=== PATIENT | male | born 1960 | race Hispanic/Latino ===

== ENCOUNTER 2016-02-19 17:33 | Inpatient (IN) | payer OTHER ==
[2016-02-19 18:25] LABS: Basophils % (Auto) 0.1 % (0.0-1.8); Eosinophils % (Auto) 0.4 % (0.0-4.3); Hematocrit 44.4 % (35.5-45.6); Mean Corpuscular HGB Conc 34 % (32-34); Mean Corpuscular Hemoglobin 30 pg (28-32); Mean Corpuscular Volume 89 fl (84-94); Platelet Count 185 K/mm3 (140-440); Red Blood Count 4.97 M/mm3 (3.65-5.03); Red Cell Distribution Width 13.5 % (13.2-15.2); White Blood Count 13.8 K/mm3 (4.5-11.0)
[2016-02-19 19:12] LABS: Urine Drugs of Abuse Note Disclamer
[2016-02-19 19:20] LABS: BUN/Creatinine Ratio 13.63; Blood Urea Nitrogen 15 mg/dL (9-20); Calcium 9.3 mg/dL (8.4-10.2); Carbon Dioxide 25 mmol/L (22-30); Chloride 97.4 mmol/L (98-107); Glucose 101 mg/dL (75-100); Potassium 4.5 mmol/L (3.6-5.0); Sodium 135 mmol/L (137-145)
[2016-02-19 19:26] LABS: Anion Gap 17 mmol/L
[2016-02-19 19:31] LABS: Bilirubin,Urine NEG (Negative); Blood,Urine NEG (Negative); Ketones,Urine NEG (Negative); Leukocyte Esterase,Urine NEG (Negative); Mucus,Urine FEW /HPF; Nitrite,Urine NEG (Negative); Protein,Urine <15 mg/dL mg/dL (Negative); Urobilinogen,Urine < 2.0 mg/dL (<2.0)
[2016-02-19] MEDS ORDERED: KEPPRA 1,000 MG/NS 0.75% 100ML 100 ML IV ONE (20:37)
[2016-02-19] MEDS ORDERED: SUBLIMAZE IV ONE (20:37)
[2016-02-19] MEDS ORDERED: ATIVAN IV ONE (20:37)
[2016-02-19] MEDS ORDERED: NACL 0.9% 1000 ML 1,000 ML IV ONE (20:37)
[2016-02-19] MEDS ORDERED: ZOFRAN IV ONE (20:38)
--- NOTE | 2016-02-19 20:52 | Emergency Department Report ---
HPI - General Chief Complaint: Chest Pain Time Seen by Provider: 02/19/16 20:23 - HPI HPI: Room 9 The patient is a 55-year-old male sent from the hospital with a chief complaint of seizure and chest pain. The patient is currently at [facility] for suicidal ideation. The patient reports she did not do anything to try to harm himself but only had the thoughts. Today at approximately 15:00 the patient was informed that he had a seizure. When the patient came to approximately 10- 15 minutes later he developed chest pain. Patient described the pain as sharp in nature substernal in location. Patient states the pain was constant for approximately 2.5 hours and then resolved. Patient denies shortness of breath, nausea/vomiting or diaphoresis. Patient states she's never had a seizure before. The patient has a history of multiple surgeries on his left hip states he has had pain in the left hip since coming to from the seizure. The patient gives his pain a score of 8/10 Location: Central nervous system, chest, left hip Duration: [see above] Quality: Sharp Severity:8/10 Modifying factors: [see above] Context: [see above] Mode of transportation: [not driving] ED Past Medical Hx - Past Medical History Hx Psychiatric Treatment: Yes (Suicide ideation) Additional medical history: Bone degeneration - Surgical History Past Surgical History?: Yes Additional Surgical History: 3 hip replacement surgeries - Family History Family history: no significant - Social History Smoking Status: Never Smoker Substance Use Type: None (denies illicit drug use or alcohol consumption) ED Review of Systems ROS: Stated complaint: CHEST PAIN,SEIZURE,LEFT HIP FRACTURE Other details as noted in HPI Comment: All other systems reviewed and negative Constitutional: denies: chills, fever Eyes: denies: eye pain, eye discharge, vision change ENT: denies: ear pain, throat pain Respiratory: denies: cough, shortness of breath, wheezing Cardiovascular: denies: chest pain, palpitations Endocrine: no symptoms reported Gastrointestinal: denies: abdominal pain, nausea, diarrhea Genitourinary: denies: urgency, dysuria Musculoskeletal: arthralgia Skin: denies: rash, lesions Neurological: other (seizure) Psychiatric: suicidal thoughts. denies: anxiety, depression Hematological/Lymphatic: denies: easy bleeding, easy bruising Physical Exam - Physical Exam Vital Signs: Vital Signs 02/19/16 02/19/1617 17:44 17:54 18:00 Temperature 98 F Pulse Rate 120 H 119 H Respiratory 16 31 H 12 Rate Blood Pressure 110/79 110/79 O2 Sat by Pulse 96 97 Oximetry 02/19/16 19:00 Temperature Pulse Rate 118 H Respiratory 17 Rate Blood Pressure 117/77 O2 Sat by Pulse 95 Oximetry Physical Exam: GENERAL: The patient is well-developed well-nourished male lying on stretcher appearing to be in moderate discomfort. [] HEENT: Normocephalic. Atraumatic. Extraocular motions are intact. Patient has moist mucous membranes. NECK: Supple. Trachea midline CHEST/LUNGS: Clear to auscultation. There is no respiratory distress noted. HEART/CARDIOVASCULAR: Regular. There is tachycardia. There is no gallop rub or murmur. ABDOMEN: Abdomen is soft, nontender. Patient has normal bowel sounds. There is no abdominal distention. SKIN: There is no rash. There is no edema. There is no diaphoresis. NEURO: The patient is awake, alert, and oriented. The patient is cooperative. The patient has no focal neurologic deficits. The patient has normal speech. Cranial nerves II through XII grossly intact, no drift MUSCULOSKELETAL: Left hip is propped up on the pillow. Patient complains of pain. Patient has limited range of motion of the left hip from previous surgery ED Course Vital Signs 02/19/16 02/19/16 02/19/16 17:44 17:54 18:00 Temperature 98 F Pulse Rate 120 H 119 H Respiratory 16 31 H 12 Rate Blood Pressure 110/79 110/79 O2 Sat by Pulse 96 97 Oximetry 02/19/16 19:00 Temperature Pulse Rate 118 H Respiratory 17 Rate Blood Pressure 117/77 O2 Sat by Pulse 95 Oximetry ED Medical Decision Making - Lab Data Result diagrams: 02/19/16 18:18 02/19/16 18:18 Laboratory Tests 02/19/16 02/19/16 02/19/16 18:18 18:18 18:49 WBC 13.8 H RBC 4.97 Hgb 15.0 Hct 44.4 MCV 89 MCH 30 MCHC 34 RDW 13.5 Plt Count 185 Lymph % (Auto) 7.7 L [place] % (Auto) 9.2 H Eos % (Auto) 0.4 Baso % (Auto) 0.1 Lymph # 1.1 L [place] # 1.3 H Eos # 0.1 Baso # 0.0 Seg Neutrophils % 82.6 H Seg Neutrophils # 11.4 H D-Dimer Sodium 135 L Potassium 4.5 Chloride 97.4 L Carbon Dioxide 25 Anion Gap 17 BUN 15 Creatinine 1.1 Estimated GFR > 60 BUN/Creatinine Ratio 13.63 Glucose 101 H Calcium 9.3 Troponin T < 0.010 Urine Color Yellow Urine Turbidity Clear Urine pH 6.0 Ur Specific [place] 1.013 Urine Protein <15 mg/dl Urine Glucose (UA) Neg Urine Ketones Neg Urine Blood Neg Urine Nitrite Neg Urine Bilirubin Neg Urine Urobilinogen < 2.0 Ur Leukocyte Esterase Neg Urine WBC (Auto) 2.0 Urine RBC (Auto) 1.0 U Epithel Cells (Auto) < 1.0 Urine Mucus Few Urine Opiates Screen Urine Methadone Screen Ur Barbiturates Screen Ur Phencyclidine Scrn Ur Amphetamines Screen U Benzodiazepines Scrn Urine Cocaine Screen U Marijuana (THC) Screen Drugs of Abuse Note 02/19/16 02/19/16 02/19/16 18:49 21:08 21:08 WBC RBC Hgb Hct MCV MCH MCHC RDW Plt Count Lymph % (Auto) [place] % (Auto) Eos % (Auto) Baso % (Auto) Lymph # [place] # Eos # Baso # Seg Neutrophils % Seg Neutrophils # D-Dimer 192.09 Sodium Potassium Chloride Carbon Dioxide Anion Gap BUN Creatinine Estimated GFR BUN/Creatinine Ratio Glucose Calcium Troponin T < 0.010 Urine Color Urine Turbidity Urine pH Ur Specific [place] Urine Protein Urine Glucose (UA) Urine Ketones Urine Blood Urine Nitrite Urine Bilirubin Urine Urobilinogen Ur Leukocyte Esterase Urine WBC (Auto) Urine RBC (Auto) U Epithel Cells (Auto) Urine Mucus Urine Opiates Screen Presumptive negative Urine Methadone Screen Presumptive negative Ur Barbiturates Screen Presumptive negative Ur Phencyclidine Scrn Presumptive negative Ur Amphetamines Screen Presumptive negative U Benzodiazepines Scrn Presumptive negative Urine Cocaine Screen Presumptive negative U Marijuana (THC) Screen Presumptive negative Drugs of Abuse Note Disclamer - EKG Data -: EKG Interpreted by Ct EKG shows normal: sinus rhythm Rate: tachycardia (116 bpm) - EKG Data When compared to previous EKG there are: previous EKG unavailable Interpretation: other (no ischemic changes seen) - Radiology Data Radiology results: report reviewed (CT head), image reviewed (CT head, chest x- ray, left hip x-ray) interpreted by me: Left hip [id number] with relocated acetabulum in place. No acute fracture seen Chest x-ray-no focal infiltrates, no pneumothorax CT head (read by radiologist)-negative CT of the head. No acute intracranial process noted. - Differential Diagnosis seizure, ACS, PE Critical care attestation.: If time is entered above; I have spent that time in minutes in the direct care of this critically ill patient, excluding procedure time. ED Disposition Clinical Impression: Chest pain, Seizure, Left hip pain Disposition: OP ADMITTED IP TO THIS HOSP Is pt being admited?: Yes Does the pt Need Aspirin: Yes Condition: Fair Instructions: Chest Pain (ED) Time of Disposition: 22:32 (hospitalist paged)
--- NOTE | 2016-02-19 21:27 | Admit Criteria Form ---
Admission Criteria Documentation: CARDIOLOGY GRG Clinical Indications for Admission to Inpatient Care ( Place 'X' for any and all applicable criteria): Hospital admission is needed for appropriate care of the patient because of ANY ONE of the following (1): [ ] I. Hemodynamic instability as indicated by ALL of the following (1)(2)(3) (4)(5) [ ]a) Vital signs or other findings not as expected for chronic patient condition or baseline [ ]b) Instability indicated by ANY ONE of the following: [ ]i) Hypotension [ ]ii) Symptomatic Tachycardia unresponsive to treatment ( e.g., analgesia, fluids, sedation as indicated) [ ]iii) Inadequate perfusion indicated by ANY ONE of the following: [ ] 1) Lactic acidosis (> 2 mmol/L) [ ] 2) New abnormal capillary refill (> 3 seconds) [ ] 3) Reduced urine output [ ] 4) New altered mental status [ ]iv) Orthostatic vital sign changes unresponsive to treatment (e.g., fluids) [ ]v) IV inotropic or vasopressor medication required to maintain adequate blood pressure or perfusion [ ] II. Severe heart failure as indicated by ANY ONE of the following(17)(18) [ ]a) Respiratory distress [ ]b) Hypotension [ ]c) Anasarca (refractory to outpatient therapy) [ ]d) Cardiac arrhythmias of immediate concern [ ]e) Myocardial ischemia [ ] III. Cardiac arrhythmias or findings of immediate concern indicated by ANY ONE of the following (19)(20): [ ] a) Heart rhythms that are inherently dangerous or unstable indicated by ANY ONE of the following (21)(22)(23): [ ] i) Resuscitated ventricular fibrillation or cardiac arrest [ ] ii) Ventricular escape rhythm [ ] iii) Sustained ventricular tachycardia (30 seconds or more of ventricular rhythm at greater than 100 beats per minute) [ ] iv) Nonsustained ventricular tachycardia and ANY ONE of the following: [ ] 1) Suspected cardiac ischemia as cause or consequence of ventricular tachycardia [ ] 2) In setting of acute myocarditis [ ] b) Unstable cardiac conduction defects indicated by ANY ONE of the following(23)(24)(25) [ ] i) Type II second-degree atrioventricular block [ ]ii) Third-degree atrioventricular block [ ]iii) New-onset left bundle branch block with suspected myocardial ischemia [ ]c) Any heart rhythm and ANY ONE of the following (21)(22)(26)(27) (28) [ ] i) Continuous long-term ECG monitoring needed (e.g., initiation of drug requiring monitoring for more than 24 hours) [ ] ii) Patient has automatic implanted cardioverter defibrillator that is repeatedly firing, malfunctioning, or in need of immediate adjustment of settings beyond the scope of ambulatory or observation care [ ]d) Heart rhythms of concern due to ANY ONE of the following: [ ] i) Hypotension [ ] ii) Respiratory distress [ ] iii) Association with other significant symptoms (e.g., bradycardia with syncope or ongoing dizziness, supraventricular tachycardia with chest pain (14)(15)(17) [ ] IV. Monitoring for cardiac contusion beyond the scope of observation care needed [A](30)(31)(32) [ ] V. Surgical or device complication (e.g., valve replacement complication , pacemaker dysfunction) (35)(41)(44)(45)(46) [ ] . Inpatient palliative care needed. [B](49) Also use Inpatient Palliative Care Criteria [ ] VII. Nonbacterial thrombotic (marantic) endocarditis (36)(43)(47)(48) [ X] VIII. Cardiology condition, symptom, or finding for which emergency and observation care has failed or are not considered appropriate. [ ] IX. Acute valvular disease requiring inpatient as indicated by ANY ONE of the following (41) [ ]a) Acute valvular regurgitation (42) [ ]b) Noninfectious valvulitis (43) [ ]c) Obstructive valve thrombosis [ ]d) Paravalvular leak [ ]e) Other significant valvular disorder remaining after emergency or observation level of care (as appropriate) [ ]X. Pericardial disease requiring inpatient treatment as indicated by ANY ONE of the following (33)(34)(35)(36)(37) [ ]a) Suspected tamponade (38)(39)(40) [ ]b) Hemopericardium [ ]c) Other significant pericardial disorder remaining after emergency or observation level of care (as appropriate) [ ] XI. Cardiac ischemia beyond scope of emergency and observation care. [ ] XII. Hypertension requiring inpatient treatment as indicated by ANY ONE of the following (6)(7)(8) [ ]a) SBP greater than 220 mm Hg or DBP greater than 120 mmHg despite treatment [ ]b) SBP greater than 140 mm Hg or DBP greater than 100 mm Hg with evidence of acute end organ damage as indicated by ANY ONE of the following [ ] i) Altered mental status [ ] ii) Acute renal failure as indicated by new onset of ANY ONE of the following (9)(10)(11)(12)(13) [ ]1) 3-fold rise in serum creatinine from baseline [ ]2) Serum creatinine greater than 4 mg/dL ( 354 micromoles/L) with acute rise greater than 0.5 mg/dL (44.2 micromoles/L) [ ]3) Reduction of more than 75% in estimated glomerular filtration rate from baseline [ ]4) Estimated glomerular filtration rate less than 35 mL/min/1.73m2 (0.59 mL/sec/1.73m2) in child up to 18 years of age [ ]5) Cessation of urine output indicated by ALL of the following [ ]A. Adequate volume status [ ]B. Inadequate urine output as indicated by ANY ONE of the following [ ]a. Urine output less than 0.3 mL/kg/hr for 24 hours [ ]b. Anuria (urine output less than 0.1 mL/kg/hr) for 12 hours [ ] iii) Aortic dissection [ ] iv) Myocardial Ischemia [ ] v) Left ventricular heart failure [ ]vi) Retinal Hemorrhage [ ]vii) Other significant finding [ ]c) Hypertension in child requiring inpatient treatment as indicated by ALL of the following(14)(15)(16) [ ] i) Outpatient treatment not effective, not available, or not appropriate [ ]ii) SBP or DBP greater than 95th percentile for age [ ]iii) Evidence of acute end organ damage as indicated by ANY ONE of the following [ ]1) Altered mental status [ ]2) Acute renal failure as indicated by new onset of ANY ONE of the following(9)(10)(11)(12)(13) [ ]A. 3-fold rise in serum creatinine from baseline [ ]B. Serum creatinine greater than 4 mg/dL (354 micromoles/L) with acute rise greater than 0.5 mg/dL (44.2 micromoles/L) [ ]C. Reduction of more than 75% in estimated glomerular filtration rate from baseline [ ]D. Estimated glomerular filtration rate less than 35 mL/min/1.73m2 (0.59 mL/sec/1.73m2) in child up to 18 years of age [ ]E. Cessation of urine output indicated by ALL of the following [ ]a. Adequate volume status [ ]b. Inadequate urine output as indicated by ANY ONE of the following [ ]i) Urine output less than 0.3 mL/kg/hr for 24 hours [ ]ii) Anuria ( urine output less than 0.1 mL/kg/hr) for 12 hours [ ]3) Severe headache [ ]4) Visual disturbance [ ]5) Retinal hemorrhage [ ]6) Other significant finding [ ]XIII. Complications of transplanted heart indicated by ANY ONE of the following(61): [ ]a) Acute graft rejection requiring inpatient management (eg, intravenous immunosuppression)(62)(63) [ ]b) Acute graft heart failure indicated by ANY ONE of the following(64): [ ]i) Hemodynamic instability [ ]ii) Cardiac arrhythmias of immediate concern [ ]iii) Pulmonary edema that is very severe (eg, mechanical ventilation needed, imminent or likely, need for 100% oxygen to keep oxygen saturation above 90%) [ ]iv) Pulmonary edema that is persistent as indicated by ALL of the following: [ ]1) New need for oxygen therapy to keep oxygen saturation above 90% (or increased FiO2 need from baseline) [ ]2) Has not improved sufficiently with emergency department or observation care IV diuretics or other heart failure treatments[E] [ ]v) Altered mental status that is severe or persistent [ ]vi) Increased creatinine (new on laboratory test) with reduction of more than 50% in estimated glomerular filtration rate from baseline [ ]vii) Progressively (ongoing) rising creatinine (known from past laboratory test) with reduction of more than 25% in estimated glomerular filtration rate from baseline [ ]viii) Acute renal failure [ ]ix) Acute peripheral ischemia (eg, examination shows pulseless, cool, mottled, or cyanotic extremity) [ ]x) Pulmonary artery catheter monitoring needed [ ]xi) Other sign or symptom of heart failure requiring inpatient treatment (ie, too severe or not responsive to outpatient and observation care treatment) [ ]c) Infection requiring inpatient management (eg, Hemodynamic instability, need for intravenous antimicrobial treatment)(66)(67)(68)(69)(70) [ ]d) Cardiac allograft vasculopathy requiring inpatient management ( eg evidence of cardiac ischemia)(71) [ ]e) Other complication of transplanted heart (eg, stroke, severe pulmonary hypertension, severe valvular dysfunction) requiring inpatient management(72) The original [facility] ? content created by [facility] has been revised. The portions of the content which have been revised are identified through the use of italic text or in bold, and [facility] has neither reviewed nor approved the modified material. All other unmodified content is copyright [facility] [employer]. Please see references footnoted in the original [facility] [employer] edition 2016 Admission Criteria Met: Yes
--- NOTE | 2016-02-19 22:07 | Cat Scan Report ---
FINAL REPORT EXAM: CT HEAD/BRAIN WO CON HISTORY: seizure TECHNIQUE: Standard unenhanced CT of the head at 5.0 millimeter axial increments PRIORS: None. FINDINGS: The ventricular system is normal in size and configuration. There is no evidence for parenchymal volume loss. There is no evidence for mass lesion, mass effect, midline shift, acute intracranial hemorrhage, or acute ischemia/ infarction. Visualized paranasal sinuses are clear. IMPRESSION: Negative CT of the head. No acute intracranial process noted.
[2016-02-19] MEDS ORDERED: ASPIRIN PO ONE (22:33)
[2016-02-20] MEDS ORDERED: MILK OF MAGNESIA PO PRN (03:24)
[2016-02-20] MEDS ORDERED: ZOFRAN IV PRN (03:24)
[2016-02-20] MEDS ORDERED: TYLENOL PO PRN (03:24)
[2016-02-20] MEDS ORDERED: DULCOLAX PR PRN (03:24)
--- NOTE | 2016-02-20 05:39 | History and Physical Report ---
History of Present Illness Date of examination: 02/20/16 Date of admission: 02/20/16 00:42 History of present illness: This is a 55-year-old man with a history of suicide ideation who is being hospitalized at [facility] was sent over to the emergency room for evaluation of new onset seizure. Patient refused to talk, unable to obtain further history or review of system. History is per the emergency room physician. The emergency room physician he also complaining of chest pain, no further details obtain PAST SURGICAL HISTORY: Unknown SOCIAL HISTORY: Hip surgery 3 FAMILY HISTORY: Unknown Medications and Allergies Allergies Allergy/AdvReac Type Severity Reaction Status Date / Time ceftriaxone sodium Allergy Hives Verified 02/19/16 18:09 [From Rocephin] Home Medications Medication Instructions Recorded Confirmed Last Taken Type Diazepam Tab [Valium] 5 mg PO TID 02/20/16 02/20/16 02/19/16 History Gabapentin [Neurontin] 600 mg PO Q8H 02/20/16 02/20/16 02/19/16 History LORazepam [Ativan] 2 mg PO Q6HR PRN 02/20/16 02/20/16 Unknown History Mirtazapine [Remeron] 45 mg PO QHS 02/20/16 02/20/16 02/19/16 History Oxycodone HCl/Acetaminophen 1 each PO Q6HR PRN 02/20/16 02/20/16 Unknown History [Percocet 10/325 mg] Venlafaxine HCl [Venlafaxine HCl 150 mg PO DAILY 02/20/16 02/20/16 02/19/16 History ER] Active Meds: Active Medications Acetaminophen (Tylenol) 650 mg PO Q4H PRN PRN Reason: Pain MILD(1-3)/Fever >100.5/WEIR Bisacodyl (Dulcolax) 10 mg VA QDAY PRN PRN Reason: Constipation unrelieved by MOM Enoxaparin Sodium (Lovenox) 40 mg SUB-Q QDAY@1000 MATTHIAS Magnesium Hydroxide (Milk Of Magnesia) 30 ml PO Q4H PRN PRN Reason: Constipation Ondansetron HCl (Zofran) 4 mg IV Q8H PRN PRN Reason: N/V unrelieved by Reglan Exam - Physical Exam Narrative exam: Gen. appearance: Patient lying in bed, no apparent distress HEENT: Normocephalic, atraumatic, pupils equally round and reactive to light, unable to do extraocular movement, and no sclericterus,. No JVD or thyromegaly or nodule,neck supple, no carotid bruit ,mucous membranes moist, unable to examine oral cavity Heart: S1, S2, regular rate and rhythm Lungs: Clear to auscultation bilaterally, breathing comfortable Abdomen: Positive bowel sounds, nontender, nondistended Extremity: No edema, cyanosis, clubbing Skin: No rash, nodules, warm, dry Neuro: uncooperative - Constitutional Vitals: Temp Pulse Resp BP Pulse Ox 98 F 101 H 13 91/61 97 02/19/16 17:44 02/20/16 02:00 02/20/16 02:00 02/20/16 04:00 02/20/16 04:00 Results - Labs CBC & Chem 7: 02/19/16 18:18 02/19/16 18:18 - Imaging and Cardiology Chest x-ray: image reviewed CT Scan - head: report reviewed Assessment and Plan New onset seizure Admit to medicine Start IV Ativan as needed, he status post loading dose of Keppra Consult neurology, start DVT prophylaxis
[2016-02-20] MEDS ORDERED: NON-FORMULARY (Gabapentin [Neurontin] 600 MG) PO SCH (05:45)
[2016-02-20] MEDS: NEURONTIN PO SCH ×3 (06:25→22:02)
--- NOTE | 2016-02-20 07:35 | XRay Report ---
AP CHEST: HISTORY: chest pain AP view of the chest demonstrates a normal mediastinal and cardiac contour with clear lungs and normal bony and soft tissue structures. IMPRESSION: Unremarkable AP chest.
--- NOTE | 2016-02-20 07:36 | Consultation ---
History of Present Illness Consult date: 02/20/16 Chief complaint: seizure History of present illness: This is a 55 YO M who presented with GTC seizure. No seizure details are available. On my arrival pt is tremulous but back at baseline. Says this is not his first seizure, he had one about 5 years ago, never found the cause and was not but on seizure medications. No recent illness, etc that pt admits to. Main complaint on my arrival is of hip pain. Past History Past Medical History: other (psychiatric illness) Past Surgical History: total hip replacement Social history: lives with family Family history: hypertension Medications and Allergies Allergies Allergy/AdvReac Type Severity Reaction Status Date / Time ceftriaxone sodium Allergy Hives Verified 02/19/16 18:09 [From Rocephin] Home Medications Medication Instructions Recorded Confirmed Last Taken Type Diazepam Tab [Valium] 5 mg PO TID 02/20/16 02/20/16 02/19/16 History Gabapentin [Neurontin] 600 mg PO Q8H 02/20/16 02/20/16 02/19/16 History LORazepam [Ativan] 2 mg PO Q6HR PRN 02/20/16 02/20/16 Unknown History Mirtazapine [Remeron] 45 mg PO QHS 02/20/16 02/20/16 02/19/16 History Oxycodone HCl/Acetaminophen 1 each PO Q6HR PRN 02/20/16 02/20/16 Unknown History [Percocet 10/325 mg] Venlafaxine HCl [Venlafaxine HCl 150 mg PO DAILY 02/20/16 02/20/16 02/19/16 History ER] Active Meds: Active Medications Acetaminophen (Tylenol) 650 mg PO Q4H PRN PRN Reason: Pain MILD(1-3)/Fever >100.5/WEIR Bisacodyl (Dulcolax) 10 mg [place] QDAY PRN PRN Reason: Constipation unrelieved by MOM Diazepam (Valium) 5 mg PO TID MATTHIAS Enoxaparin Sodium (Lovenox) 40 mg SUB-Q QDAY@1000 MATTHIAS Gabapentin (Neurontin) 600 mg PO Q8HR [facility] Last Admin: 02/20/16 06:25 Dose: 600 mg Lorazepam (Ativan) 2 mg IV Q4H PRN PRN Reason: Seizures Magnesium Hydroxide (Milk Of Magnesia) 30 ml PO Q4H PRN PRN Reason: Constipation Mirtazapine (Remeron) 45 mg PO QHS MATTHIAS Ondansetron HCl (Zofran) 4 mg IV Q8H PRN PRN Reason: N/V unrelieved by Reglan Venlafaxine HCl (Effexor Xr) 150 mg PO QDAY MATTHIAS Review of Systems Musculoskeletal: gait dysfunction Neurological: seizures Physical Examination - Vital Signs Vital Signs: Vital Signs Temp Pulse Resp BP Pulse Ox 98 F 120 H 16 110/79 96 02/19/16 17:44 02/19/16 17:44 02/19/16 17:44 02/19/16 17:44 02/19/16 17:44 - EENT EENT: Present: PERRL - Respiratory Respiratory: Present: normal breath sounds - Cardiovascular Cardiovascular: Present: normal S1, normal S2 - Neurologic Cranial nerve examination: anosmic, PERRL, V1/V2/V3 grossly intact, face symmetric, tongue midline Detailed motor examination: grossly full strength in Motor examination - right side: 5/5: biceps, triceps, wrist flexion, wrist extension, coupon clerk, hip flexors, knee extensors, dorsiflexion, toe extension (EHL) , plantarflexion Motor examination - left side: 5/5: biceps, triceps, wrist flexion, wrist extension, coupon clerk, hip flexors, knee extensors, dorsiflexion, toe extension (EHL) , plantarflexion Detailed sensory examination: light touch, temperature Reflexes: 0: ankle, bicep, knee, tricep Results - Laboratory Findings CBC and BMP: 02/19/16 18:18 02/19/16 18:18 - Diagnostic Findings Additional findings: CT head negative Assessment and Plan This is a 55 YO M with now a second seizure. Recommend: Consider Depakote or Lamictal instead of Keppra for seizure treatment. Keppra can exacerbate psychiatric illness. could load with Depacon 10 mg/kg and treat with [address] or ER q 12. MRI Brain with and without contrast if no contraindication could do EEG but not absolutely necessary since you are deciding to treat regardless of the result seizure precautions Pt is tremulous, watch for withdrawals. Pt says he uses Percocet 10 on a very regular basis. Also has valium on his MAR. Abruptly stopping either of these could result in seizures. Continue care for his medical issues as you are doing. Thank you for this consult. Please call with questions.
[2016-02-20] MEDS: VALIUM PO SCH ×3 (07:55→20:05)
--- NOTE | 2016-02-20 09:20 | XRay Report ---
LEFT HIP 2 VIEWS: 02/19/16 17:33:00 CLINICAL: Left hip pain after seizure. No comparison. FINDINGS: Status post left total hip replacement. The relative high position of the acetabulum suggests a prior history of congenital hip dysplasia. Normal appearance of the prosthesis. No fracture or dislocation. Normal soft tissues. IMPRESSION: Negative status post left total hip replacement.
[2016-02-20] MEDS ORDERED: VENLAFAXINE HCL 150 MG PO SCH (10:00)
[2016-02-20] MEDS ORDERED: LOVENOX SUB-Q SCH (10:00)
[2016-02-20 10:34] LABS: Creatine Kinase MB 3.3 ng/mL (0.0-4.0)
[2016-02-20 10:37] LABS: Creatine Kinase 999 units/L (55-170)
[2016-02-20] MEDS: PERCOCET 5/325 PO PRN ×3 (11:18→22:03)
[2016-02-20] MEDS: LOVENOX SUB-Q SCH (13:58)
[2016-02-20] MEDS: EFFEXOR XR PO SCH (13:58)
--- NOTE | 2016-02-20 16:20 | Event Note ---
Date: 02/20/16 patient admitted with seizures. he was evaluated by neuro and she recommmends MRI Brain. She also recommends Depakote instead of Keppra.
[2016-02-20] MEDS ORDERED: DepaCON 500 MG in NACL 0.9% 100 ML IV ONE (18:00)
[2016-02-20] MEDS ORDERED: NON-FORMULARY (Mirtazapine [Remeron] 45 MG) PO SCH (22:00)
[2016-02-20] MEDS: REMERON PO SCH (22:00)
[2016-02-21] MEDS ORDERED: MORPHINE IV ONE (03:45)
[2016-02-21] MEDS ORDERED: NACL 0.9% 1000 ML 1,000 ML IV SCH (04:00)
[2016-02-21] MEDS: D5NS 1,000 ML IV SCH ×2 (04:09→15:32)
[2016-02-21 06:12] LABS: Basophils % (Auto) 0.3 % (0.0-1.8); Eosinophils % (Auto) 1.9 % (0.0-4.3); Hematocrit 43.3 % (35.5-45.6); Hemoglobin 14.5 gm/dl (11.8-15.2); Mean Corpuscular HGB Conc 34 % (32-34); Mean Corpuscular Hemoglobin 30 pg (28-32); Mean Corpuscular Volume 89 fl (84-94); Platelet Count 162 K/mm3 (140-440); Red Blood Count 4.87 M/mm3 (3.65-5.03); Red Cell Distribution Width 13.1 % (13.2-15.2); White Blood Count 6.5 K/mm3 (4.5-11.0)
[2016-02-21 06:30] LABS: Anion Gap 19 mmol/L; BUN/Creatinine Ratio 12.72; Blood Urea Nitrogen 14 mg/dL (9-20); Calcium 8.7 mg/dL (8.4-10.2); Carbon Dioxide 24 mmol/L (22-30); Chloride 100.4 mmol/L (98-107); Creatine Kinase 696 units/L (55-170); Glucose 103 mg/dL (75-100); Potassium 4.1 mmol/L (3.6-5.0); Sodium 139 mmol/L (137-145)
[2016-02-21] MEDS: NEURONTIN PO SCH ×3 (06:41→21:18)
[2016-02-21] MEDS: VALIUM PO SCH ×3 (08:32→21:18)
[2016-02-21] MEDS: PERCOCET 5/325 PO PRN ×3 (09:37→21:19)
[2016-02-21] MEDS: EFFEXOR XR PO SCH (09:38)
[2016-02-21] MEDS: LOVENOX SUB-Q SCH (09:38)
--- NOTE | 2016-02-21 11:48 | Progress Note ---
Assessment and Plan Assessment and plan: --New onset seizures No new episodes of seizures, continue antiepileptic medications MRI negative for any acute abnormality Nephrology evaluation and recommendations noted and appreciated --History of suicidal ideation, 10 13 status suicidal watch --DVT prophylaxis Lovenox --DC planning if patient is stable and no new complaints will be discharged back to tomorrow History Interval history: Sincerely and evaluated this morning medical records reviewed Admitted with new onset seizure patient feels better no new seizure episodes On antiseizure medications Alert awake oriented 3 not in acute distress librarian assistant at the bedside 1013 status, Hospitalist Physical - Constitutional Vitals: Temp Pulse Resp BP Pulse Ox 97.8 F 84 16 106/63 97 02/21/16 08:00 02/21/16 08:00 02/21/16 08:00 02/21/16 08:00 02/21/16 09:41 General appearance: Present: no acute distress, well-nourished - EENT Eyes: Present: PERRL, EOM intact - Neck Neck: Present: supple, normal ROM - Respiratory Respiratory effort: normal Respiratory: negative: rales, rhonchi, wheezing - Cardiovascular Rhythm: regular Heart Sounds: Present: S1 & S2 - Extremities Extremities: no ischemia, pulses intact, pulses symmetrical Peripheral Pulses: within normal limits - Abdominal General gastrointestinal: soft, non-tender, non-distended, normal bowel sounds - Integumentary Integumentary: Present: clear, warm - Psychiatric Psychiatric: appropriate mood/affect, cooperative - Neurologic Neurologic: CNII-XII intact, moves all extremities Results - Labs CBC & Chem 7: 02/21/16 05:19 02/21/16 05:19 Labs: Laboratory Last Values WBC 6.5 K/mm3 (4.5-11.0) 02/21/16 05:19 RBC 4.87 M/mm3 (3.65-5.03) 02/21/16 05:19 Hgb 14.5 gm/dl (11.8-15.2) 02/21/16 05:19 Hct 43.3 % (35.5-45.6) 02/21/16 05:19 MCV 89 fl (84-94) 02/21/16 05:19 MCH 30 pg (28-32) 02/21/16 05:19 MCHC 34 % (32-34) 02/21/16 05:19 RDW 13.1 % (13.2-15.2) L 02/21/16 05:19 Plt Count 162 K/mm3 (140-440) 02/21/16 05:19 Lymph % (Auto) 25.3 % (13.4-35.0) 02/21/16 05:19 [place] % (Auto) 14.1 % (0.0-7.3) H 02/21/16 05:19 Eos % (Auto) 1.9 % (0.0-4.3) 02/21/16 05:19 Baso % (Auto) 0.3 % (0.0-1.8) 02/21/16 05:19 Lymph # 1.6 K/mm3 (1.2-5.4) 02/21/16 05:19 [place] # 0.9 K/mm3 (0.0-0.8) H 02/21/16 05:19 Eos # 0.1 K/mm3 (0.0-0.4) 02/21/16 05:19 Baso # 0.0 K/mm3 (0.0-0.1) 02/21/16 05:19 Seg Neutrophils % 58.4 % (40.0-70.0) 02/21/16 05:19 Seg Neutrophils # 3.8 K/mm3 (1.8-7.7) 02/21/16 05:19 D-Dimer 192.09 ng/mlDDU (0-234) 02/19/16 21:08 Sodium 139 mmol/L (137-145) 02/21/16 05:19 Potassium 4.1 mmol/L (3.6-5.0) 02/21/16 05:19 Chloride 100.4 mmol/L (98-107) 02/21/16 05:19 Carbon Dioxide 24 mmol/L (22-30) 02/21/16 05:19 Anion Gap 19 mmol/L 02/21/16 05:19 BUN 14 mg/dL (9-20) 02/21/16 05:19 Creatinine 1.1 mg/dL (0.8-1.5) 02/21/16 05:19 Estimated GFR > 60 ml/min 02/21/16 05:19 BUN/Creatinine Ratio 12.72 % 02/21/16 05:19 Glucose 103 mg/dL (75-100) H 02/21/16 05:19 Calcium 8.7 mg/dL (8.4-10.2) 02/21/16 05:19 Magnesium 1.7 mg/dL (1.7-2.3) 02/19/16 20:45 Total Creatine Kinase 696 units/L (55-170) H 02/21/16 05:19 CK-MB (CK-2) 3.3 ng/mL (0.0-4.0) 02/20/16 10:02 CK-MB (CK-2) Rel Index 0.3 (0-4) 02/20/16 10:02 Troponin T < 0.010 ng/mL (0.00-0.029) 02/20/16 10:02 Urine Color Yellow (Yellow) 02/19/16 18:49 Urine Turbidity Clear (Clear) 02/19/16 18:49 Urine pH 6.0 (5.0-7.0) 02/19/16 18:49 Ur Specific [place] 1.013 (1.003-1.030) 02/19/16 18:49 Urine Protein <15 mg/dl mg/dL (Negative) 02/19/16 18:49 Urine Glucose (UA) Neg mg/dL (Negative) 02/19/16 18:49 Urine Ketones Neg mg/dL (Negative) 02/19/16 18:49 Urine Blood Neg (Negative) 02/19/16 18:49 Urine Nitrite Neg (Negative) 02/19/16 18:49 Urine Bilirubin Neg (Negative) 02/19/16 18:49 Urine Urobilinogen < 2.0 mg/dL (<2.0) 02/19/16 18:49 Ur Leukocyte Esterase Neg (Negative) 02/19/16 18:49 Urine WBC (Auto) 2.0 /HPF (0.0-6.0) 02/19/16 18:49 Urine RBC (Auto) 1.0 /HPF (0.0-6.0) 02/19/16 18:49 U Epithel Cells (Auto) < 1.0 /HPF (0-13.0) 02/19/16 18:49 Urine Mucus Few /HPF 02/19/16 18:49 Urine Opiates Screen Presumptive negative 02/19/16 18:49 Urine Methadone Screen Presumptive negative 02/19/16 18:49 Ur Barbiturates Screen Presumptive negative 02/19/16 18:49 Ur Phencyclidine Scrn Presumptive negative 02/19/16 18:49 Ur Amphetamines Screen Presumptive negative 02/19/16 18:49 U Benzodiazepines Scrn Presumptive negative 02/19/16 18:49 Urine Cocaine Screen Presumptive negative 02/19/16 18:49 U Marijuana (THC) Screen Presumptive negative 02/19/16 18:49 Drugs of Abuse Note Disclamer 02/19/16 18:49
[2016-02-21] MEDS: MORPHINE IV PRN ×2 (12:36→17:59)
--- NOTE | 2016-02-21 12:58 | Magnetic Resonance Report ---
MRI BRAIN WITH AND WITHOUT CONTRAST: INDICATION: Seizures. COMPARISON: 02/19/[address] FINDINGS: Multiplanar and multisequence MRI of the brain performed before and after 12 mL multihance intravenously again demonstrates normal ventricles and sulci. Right temporal horn slightly more prominent than the left, though overall well within normal limits and considered a physiologic variant. Few, tiny white matter FLAIR and T2 weighted hyperintensities as in the frontal lobes measuring up to approximately 4 mm on the right, axial series 7, image 15 near the sylvian fissure. No acute infarct, hemorrhage, mass effect or midline shift. No abnormal extra-axial fluid collections. Normal major intracranial vascular flow voids. No suspicious abnormal enhancement. Normal posterior fossa with symmetric seventh and eighth nerve complexes and preserved basilar cisterns. Unremarkable eye globes. Rightward nasal septal deviation/spur noted. Slight bilateral ethmoid sinusitis, more so posteriorly and also minimal sphenoid and maxillary sinus mucosal thickening. Clear mastoid air cells. Normal midline structures without evidence of Chiari malformation. CONCLUSION: No acute intracranial MRI abnormality with few incidental findings, as above. Thank you for the opportunity to participate in this patient's care.
[2016-02-21] MEDS: REMERON PO SCH (21:19)
[2016-02-22] MEDS: MORPHINE IV PRN ×4 (00:15→17:56)
[2016-02-22] MEDS: PERCOCET 5/325 PO PRN ×4 (03:37→20:37)
[2016-02-22] MEDS: NEURONTIN PO SCH ×3 (06:12→22:48)
[2016-02-22] MEDS: VALIUM PO SCH ×3 (08:52→20:38)
[2016-02-22] MEDS: LOVENOX SUB-Q SCH ×2 (08:52→10:00)
[2016-02-22] MEDS: EFFEXOR XR PO SCH ×2 (08:53→10:00)
--- NOTE | 2016-02-22 13:09 | Discharge Summary ---
Providers - Providers Date of Admission: 02/20/16 00:42 Date of discharge: 02/22/16 Attending physician: JOSE MIGUEL MASTERSON 02/20/16 05:45 Consult to Physician [CONS] Routine Consulting Provider: YAIMA MATT Reason For Exam: NEW SZ Place consult to:: Emy Fowler Notified:: yes Phone number called:: [phone] Was contact made?: Yes If yes, spoke with:: left message as instructed Time called:: 08:42 Primary care physician: MEDICAL CLERK Hospitalization Reason for admission: seizures Condition: Fair Disposition: DC/TX PSY HOSP/PSY UNIT Core Measure Documentation - Palliative Care Palliative Care/ Comfort Measures: Not Applicable - Core Measures Any of the following diagnoses?: none Exam - Constitutional Vitals: Temp Pulse Resp BP Pulse Ox 98.0 F 74 18 124/74 96 02/22/16 08:06 02/22/16 08:06 02/22/16 08:06 02/22/16 08:06 02/22/16 08:06 General appearance: Present: no acute distress, well-nourished - EENT Eyes: Present: PERRL, EOM intact - Neck Neck: Present: supple, normal ROM - Respiratory Respiratory effort: normal Respiratory: bilateral: diminished, negative: rales, rhonchi, wheezing - Cardiovascular Rhythm: regular Heart Sounds: Present: S1 & S2 - Extremities Extremities: no ischemia, pulses intact, pulses symmetrical Peripheral Pulses: within normal limits - Abdominal General gastrointestinal: Present: soft, non-tender, non-distended, normal bowel sounds - Integumentary Integumentary: Present: clear, warm - Musculoskeletal Musculoskeletal: strength equal bilaterally - Psychiatric Psychiatric: appropriate mood/affect, cooperative - Neurologic Neurologic: CNII-XII intact, moves all extremities Plan Activity: advance as tolerated, other (1013) Diet: regular Additional Instructions: DC and transfer to [facility] facility. Under the care of psychiatrist Follow up with: PRIMARY CARE, [Primary Care Provider] - 3-5 Days Prescriptions: Divalproex ER [Depakote ER] 500 mg PO BID #60 tablet
[2016-02-22] MEDS: D5NS 1,000 ML IV SCH (20:40)
[2016-02-22] MEDS: REMERON PO SCH (22:48)
[2016-02-23] MEDS: MORPHINE IV PRN ×4 (00:56→18:40)
[2016-02-23] MEDS: D5NS 1,000 ML IV SCH ×2 (04:19→14:34)
[2016-02-23] MEDS: PERCOCET 5/325 PO PRN ×3 (04:20→16:02)
[2016-02-23] MEDS: ATIVAN IV PRN ×2 (04:20→16:09)
[2016-02-23] MEDS: NEURONTIN PO SCH ×2 (05:21→14:34)
[2016-02-23] MEDS: VALIUM PO SCH ×2 (08:57→14:34)
[2016-02-23] MEDS: LOVENOX SUB-Q SCH (09:29)
[2016-02-23] MEDS: EFFEXOR XR PO SCH (09:29)
[2016-02-23 16:40] VITALS: BP 130/76
--- NOTE | 2016-02-23 16:57 | Discharge Summary ---
Providers - Providers Date of Admission: 02/20/16 00:42 Date of discharge: 02/23/16 Attending physician: JOSE MIGUEL MASTERSON 02/20/16 05:45 Consult to Physician [CONS] Routine Consulting Provider: YAIMA MATT Reason For Exam: NEW SZ Place consult to:: Emy Fowler Notified:: yes Phone number called:: [phone] Was contact made?: Yes If yes, spoke with:: left message as instructed Time called:: 08:42 Primary care physician: CRISIS WORKER Hospitalization Reason for admission: seizure episode Condition: Fair Pertinent studies: CT head without contrast; no acute intracranial abnormality noted Chest x-ray; no acute cardiopulmonary abnormality noted MRI brain; no acute intracranial abnormality noted, some nonspecific incidental findings, to be evaluated by outpatient neurologist upon discharge x-ray left hip; status post left total hip replacement, no acute abnormality noted Hospital course: Diagnosis; --New onset seizures --Rhabdomyolysis, improved --History of suicidal ideation, 10 13 status suicidal watch Brief history and hospital course; Very pleasant 55-year-old male patient with a history of suicidal ideation was admitted to [facility]. He had new onset seizures in [facility], transferred to [facility], admitted to the hospital, placed on antiseizure medications, evaluated by neurologist, placed on suicidal watch with the safety net maker, he should also has rhabdomyolysis with preserved renal function, received IV hydration with significant improvement of CK levels Patient's symptoms significantly improved, no new episodes of seizure, today vital signs are stable [id number] evaluation and physical examination done by me prior to discharge did not show any new changes as detailed below Hemodynamically and clinically stable for discharge and transfer back to [facility] facility today Advice Lam precautions, complains with medications, follow up with neurology upon discharge for further evaluation and management. I spent 32 minutes coordinating this discharge Disposition: DC/TX PSY HOSP/PSY UNIT Time spent for discharge: 32 Core Measure Documentation - Palliative Care Palliative Care/ Comfort Measures: Not Applicable - Core Measures Any of the following diagnoses?: none Exam - Constitutional Vitals: Temp Pulse Resp BP Pulse Ox 97.7 F 96 H 18 130/76 97 02/23/16 16:00 02/23/16 16:00 02/23/16 10:00 02/23/16 16:00 02/23/16 16:00 General appearance: Present: no acute distress, well-nourished - EENT Eyes: Present: PERRL, EOM intact - Neck Neck: Present: supple, normal ROM - Respiratory Respiratory effort: normal Respiratory: negative: rales, rhonchi, wheezing - Cardiovascular Rhythm: regular Heart Sounds: Present: S1 & S2 - Extremities Extremities: no ischemia, pulses intact, pulses symmetrical Peripheral Pulses: within normal limits - Abdominal General gastrointestinal: Present: soft, non-tender, non-distended, normal bowel sounds - Integumentary Integumentary: Present: clear, warm - Musculoskeletal Musculoskeletal: strength equal bilaterally, generalized weakness - Psychiatric Psychiatric: appropriate mood/affect, cooperative - Neurologic Neurologic: CNII-XII intact, moves all extremities Plan Activity: advance as tolerated, other (11 23/suicidal watch) Diet: regular Special Instructions: other (seizure precautions) Additional Instructions: Seizure precautions Follow up with: PRIMARY CAREMD [Primary Care Provider] - 3-5 Days JAMEE RUTHERFORD MD [Staff Physician] - 7 Days Prescriptions: Divalproex ER [Depakote ER] 500 mg PO BID #60 tablet
--- NOTE | 2016-02-23 17:05 | Progress Note ---
Assessment and Plan Assessment and plan: --New onset seizures Workup negative so far, no new episodes of seizure Continue antiepileptic medications, seizure precautions --History of suicidal ideation, 10 13 status suicidal watch Patient stable --DVT prophylaxis Lovenox --DC planning patient is medically stable for discharge and transfer back to [facility] History Interval history: Patient seen and evaluated medical records reviewed Patient feels better no new complaints Denies any chest pain shortness, no new episodes of severe Alert awake oriented 3 not in acute distress Vital signs reviewed multimedia producer at the bedside Hospitalist Physical - Constitutional Vitals: Temp Pulse Resp BP Pulse Ox 97.7 F 96 H 18 130/76 97 02/23/16 16:00 02/23/16 16:00 02/23/16 10:00 02/23/16 16:00 02/23/16 16:00 General appearance: Present: no acute distress, well-nourished - EENT Eyes: Present: PERRL, EOM intact - Neck Neck: Present: supple, normal ROM - Respiratory Respiratory effort: normal Respiratory: negative: rales, rhonchi, wheezing - Cardiovascular Rhythm: regular Heart Sounds: Present: S1 & S2 - Extremities Extremities: no ischemia, pulses intact, pulses symmetrical Peripheral Pulses: within normal limits - Abdominal General gastrointestinal: soft, non-tender, non-distended, normal bowel sounds - Integumentary Integumentary: Present: clear, warm - Psychiatric Psychiatric: appropriate mood/affect, cooperative - Neurologic Neurologic: CNII-XII intact, moves all extremities Results - Labs CBC & Chem 7: 02/21/16 05:19 02/21/16 05:19 Labs: Laboratory Last Values WBC 6.5 K/mm3 (4.5-11.0) 02/21/16 05:19 RBC 4.87 M/mm3 (3.65-5.03) 02/21/16 05:19 Hgb 14.5 gm/dl (11.8-15.2) 02/21/16 05:19 Hct 43.3 % (35.5-45.6) 02/21/16 05:19 MCV 89 fl (84-94) 02/21/16 05:19 MCH 30 pg (28-32) 02/21/16 05:19 MCHC 34 % (32-34) 02/21/16 05:19 RDW 13.1 % (13.2-15.2) L 02/21/16 05:19 Plt Count 162 K/mm3 (140-440) 02/21/16 05:19 Lymph % (Auto) 25.3 % (13.4-35.0) 02/21/16 05:19 [place] % (Auto) 14.1 % (0.0-7.3) H 02/21/16 05:19 Eos % (Auto) 1.9 % (0.0-4.3) 02/21/16 05:19 Baso % (Auto) 0.3 % (0.0-1.8) 02/21/16 05:19 Lymph # 1.6 K/mm3 (1.2-5.4) 02/21/16 05:19 [place] # 0.9 K/mm3 (0.0-0.8) H 02/21/16 05:19 Eos # 0.1 K/mm3 (0.0-0.4) 02/21/16 05:19 Baso # 0.0 K/mm3 (0.0-0.1) 02/21/16 05:19 Seg Neutrophils % 58.4 % (40.0-70.0) 02/21/16 05:19 Seg Neutrophils # 3.8 K/mm3 (1.8-7.7) 02/21/16 05:19 D-Dimer 192.09 ng/mlDDU (0-234) 02/19/16 21:08 Sodium 139 mmol/L (137-145) 02/21/16 05:19 Potassium 4.1 mmol/L (3.6-5.0) 02/21/16 05:19 Chloride 100.4 mmol/L (98-107) 02/21/16 05:19 Carbon Dioxide 24 mmol/L (22-30) 02/21/16 05:19 Anion Gap 19 mmol/L 02/21/16 05:19 BUN 14 mg/dL (9-20) 02/21/16 05:19 Creatinine 1.1 mg/dL (0.8-1.5) 02/21/16 05:19 Estimated GFR > 60 ml/min 02/21/16 05:19 BUN/Creatinine Ratio 12.72 % 02/21/16 05:19 Glucose 103 mg/dL (75-100) H 02/21/16 05:19 Calcium 8.7 mg/dL (8.4-10.2) 02/21/16 05:19 Magnesium 1.7 mg/dL (1.7-2.3) 02/19/16 20:45 Total Creatine Kinase 325 units/L (55-170) H 02/22/16 05:48 CK-MB (CK-2) 3.3 ng/mL (0.0-4.0) 02/20/16 10:02 CK-MB (CK-2) Rel Index 0.3 (0-4) 02/20/16 10:02 Troponin T < 0.010 ng/mL (0.00-0.029) 02/20/16 10:02 Urine Color Yellow (Yellow) 02/19/16 18:49 Urine Turbidity Clear (Clear) 02/19/16 18:49 Urine pH 6.0 (5.0-7.0) 02/19/16 18:49 Ur Specific [place] 1.013 (1.003-1.030) 02/19/16 18:49 Urine Protein <15 mg/dl mg/dL (Negative) 02/19/16 18:49 Urine Glucose (UA) Neg mg/dL (Negative) 02/19/16 18:49 Urine Ketones Neg mg/dL (Negative) 02/19/16 18:49 Urine Blood Neg (Negative) 02/19/16 18:49 Urine Nitrite Neg (Negative) 02/19/16 18:49 Urine Bilirubin Neg (Negative) 02/19/16 18:49 Urine Urobilinogen < 2.0 mg/dL (<2.0) 02/19/16 18:49 Ur Leukocyte Esterase Neg (Negative) 02/19/16 18:49 Urine WBC (Auto) 2.0 /HPF (0.0-6.0) 02/19/16 18:49 Urine RBC (Auto) 1.0 /HPF (0.0-6.0) 02/19/16 18:49 U Epithel Cells (Auto) < 1.0 /HPF (0-13.0) 02/19/16 18:49 Urine Mucus Few /HPF 02/19/16 18:49 Urine Opiates Screen Presumptive negative 02/19/16 18:49 Urine Methadone Screen Presumptive negative 02/19/16 18:49 Ur Barbiturates Screen Presumptive negative 02/19/16 18:49 Ur Phencyclidine Scrn Presumptive negative 02/19/16 18:49 Ur Amphetamines Screen Presumptive negative 02/19/16 18:49 U Benzodiazepines Scrn Presumptive negative 02/19/16 18:49 Urine Cocaine Screen Presumptive negative 02/19/16 18:49 U Marijuana (THC) Screen Presumptive negative 02/19/16 18:49 Drugs of Abuse Note Disclamer 02/19/16 18:49
== END 2016-02-23 20:33 | DRG 101 ==
LOC: ED 17:33 → 3A 02-20 00:42
PROVIDERS: ADMIT Internal Medicine; ATTEND Internal Medicine
DX: R56.9 Unspecified convulsions (principal); M62.82 Rhabdomyolysis; Z96.642 Presence of left artificial hip joint; Z88.8 Allergy status to other drugs, medicaments and biological substances; Z82.49 Family history of ischemic heart disease and other diseases of the circulatory system
CPT/HCPCS: 36415; 70450; 70553; 71010; 80048; 80307; 81001; 82550; 82553; 83735; 84484; 85025; 85379; 93005; 93010; 95819; 96361; 96365; 96375; A9577; J1650; J1953; J2060; J2270; J2405; J3010; J7030; J7042